=== PATIENT | male | born 2000 | race Hispanic/Latino ===

== ENCOUNTER 2019-09-25 09:48 | Inpatient (IN) | payer MEDICAID, SELFPAY ==
[2019-09-25] VITALS (11 sets, daily range): BP systolic 109–135; BP diastolic 63–83; PULSE 69–96; RESP 16–20; TEMP 35.9–36.9; O2SAT 98–100; BMI 20.9
--- NOTE | ~2019-09-25 | XR_ITS ---
EXAMINATION: XR chest 1V portable DATE: 09/26/2019 05:27 INDICATION: Left pneumothorax TECHNIQUE: frontal view of the chest was obtained. COMPARISON: Chest radiograph dated 09/25/2019 FINDINGS: Unchanged left chest tube. No pneumothorax. Lungs are clear with no airspace opacities, pulmonary bernardino ma or pleural effusion. The cardiomediastinal silhouette is normal. Persistent soft tissue gas at the lateral left chest wall extending to the base of the neck likely related to chest tube placement. IMPRESSION: 1. Unchanged left chest tube with no residual pneumothorax or other acute cardiopulmonary disease. Reviewed, dictated and finalized at location A. IMPRESSION: 1. Unchanged left chest tube with no residual pneumothorax or other acute cardi opulmonary disease.
--- NOTE | ~2019-09-25 | XR_ITS ---
EXAMINATION: XR chest 2V DATE: 09/25/2019 10:53 INDICATION: Chest pain when laying down TECHNIQUE: PA and lateral views of the chest were obtained. COMPARISON: None FINDINGS: Small to moderate left pneumothorax with separation of the pleural margins measuring 2.8 cm at the ap ex decreasing to 8 mm at the lateral midlung and 3 mm at the lateral mid to lower lung. No focal airs pace opacities, pulmonary edema, pleural effusion or right-sided pneumothorax. The cardiomediastinal silhouette is normal and remains midline. Visualized bones and soft tissues are unremarkable. IMPRESSION: 1. Small to moderate left pneumothorax without midline shift to suggest tension physiology. Dr. Courtney sheets discussed these findings with Dr. Jimenez at 11:10 AM. Reviewed, dictated and finalized at location A. IMPRESSION: 1. Small to moderate left pneumothorax without midline shift to suggest tension physiology. Dr. Plasencia discussed these findings with Dr. Jimenez at 11:10 AM.
--- NOTE | ~2019-09-25 | XR_ITS ---
EXAMINATION: XR chest 2V DATE: 09/27/2019 14:38 INDICATION: Left pneumothorax status post chest tube removal. TECHNIQUE: Frontal and lateral views of the chest were obtained. COMPARISON: Chest 2 views at 9:10 AM FINDINGS: The chest demonstrates clear lungs without pneumonia, pleural effusion, or pneumothorax. Th e heart size is normal. Again seen is gas in left chest wall and left neck. IMPRESSION: 1. No acute cardiopulmonary disease. Reviewed, dictated and finalized at location A.
--- NOTE | ~2019-09-25 | XR_ITS ---
EXAMINATION: XR chest 2V DATE: 09/27/2019 09:13 INDICATION: Left pneumothorax with left chest tube placed to waterseal. TECHNIQUE: PA and lateral views of the chest were obtained. COMPARISON: Chest radiograph dated 09/26/2019 FINDINGS: Unchanged left chest tube. No focal airspace opacities, pulmonary edema, pleural effusion or pneumoth orax. Cardiomediastinal silhouette is normal. Subcutaneous gas at the left chest wall base of the lef t neck likely related to chest tube placement. IMPRESSION: 1. Unchanged left chest tube with no recurrent pneumothorax or other evident lung disease. Reviewed, dictated and finalized at location A. IMPRESSION: 1. Unchanged left chest tube with no recurrent pneumothorax or other evident rosa ng disease.
--- NOTE | ~2019-09-25 | XR_ITS ---
EXAMINATION: XR chest-chest tube insert/pos DATE: 09/25/2019 13:11 INDICATION: Chest tube placement for left pneumothorax TECHNIQUE: frontal view of the chest was obtained. COMPARISON: Chest radiograph dated 09/25/2019 at 10:53 AM FINDINGS: Interval placement of a left chest tube which curves over the left upper lung zone with distal tip pr ojecting over the left hilum. No definitive residual pneumothorax. No focal airspace opacities, pulmo nary edema or pleural effusion. The cardiomediastinal silhouette is normal. Size bones are unremarkab le. Expected soft tissue gas related to chest tube placement extending along the lateral left chest w all and into the base of the left neck. IMPRESSION: 1. Resolution of prior left pneumothorax post chest tube placement. Reviewed, dictated and finalized at location A.
--- NOTE | 2019-09-25 10:30 | ECG_ITS ---
Measurements Intervals [place] Rate: 80 P: 33 AL: 142 QRS: 19 QRSD: 90 T: 62 QT: 345 QTc: 399 Interpretive Statements SINUS RHYTHM WITH SINUS ARRHYTHMIA NORMAL ECG Electronically Signed On 09-25-2019 20:41:44 CDT by Jamey Powell D.O.
[2019-09-25] MEDS: ASPIRIN 81 MG CHEWABLE TABLET 324 MG PO (10:43)
--- NOTE | 2019-09-25 11:05 | ED.GENADULT ---
HPI - General Adult General Chief complaint: Unspecified Stated complaint: chest hurts to lay down or take deep breath Time Seen by Provider: 09/25/19 10:43 Source: patient Mode of arrival: ambulatory Limitations: no limitations Related Data Home Medications Medication Instructions Recorded Confirmed No Home Medications 09/25/19 09/25/19 Allergies Allergy/AdvReac Type Severity Reaction Status Date / Time No Known Allergies Allergy Unverified 09/25/19 10:00 Review of Systems Review of Systems: Narrative: CONSTITUTIONAL: Denies fever, chills, or sweats. EYES: Denies visual changes, redness, or discharge. ENT: Denies rhinorrhea, congestion, sore throat, or otalgia. CARDIOVASCULAR: Denies chest pain, palpitations, or edema. RESPIRATORY: Denies cough or dyspnea. GASTROINTESTINAL: Denies abdominal pain, nausea, vomiting, or diarrhea. GENITOURINARY: Denies dysuria or hematuria. SKIN: Denies rash or itching. MUSCULOSKELETAL: Denies back pain, joint pain, or myalgia. NEUROLOGIC: Denies headache, numbness, or weakness. PSYCHIATRIC: Denies anxiety or depression. PMFSH Social History Social History Gender identity (if verbalized by the patient): Male Comments At the time of my signature I agree with nursing past medical history, surgical, social, and family history. There is no relevant family history pertinent to the presenting complaint. Exam Narrative: Exam Narrative: GENERAL: Well-appearing, well-nourished, and in no acute distress. HEAD: Normocephalic, atraumatic. EYES: PERRLA and EOMI. ENT: Nares clear, no rhinorrhea or epistaxis. Mucous membranes moist. NECK: Supple. No lymphadenopathy CHEST: Clear to auscultation. No respiratory distress. HEART: Regular rate and rhythm. No murmur heard. Normal peripheral pulses. ABDOMEN: Soft, nontender, nondistended, normal active bowel sounds. EXTREMITIES: Normal range of motion. No edema. SKIN: Warm, dry, no rash. NEURO: No focal deficits. Alert and oriented x3. Course Vital Signs Vital signs: Vital Signs Temperature 36.9 C 09/25/19 09:57 Pulse Rate 93 09/25/19 09:57 Respiratory Rate 09/25/19 09:57 Blood Pressure 125/75 09/25/19 09:57 Pulse Oximetry 98 09/25/19 09:57 Temperature 36.9 C 09/25/19 09:57 Pulse Rate 96 09/25/19 10:29 Respiratory Rate 09/25/19 09:57 Blood Pressure 125/75 09/25/19 09:57 Pulse Oximetry 98 09/25/19 09:57 Vital signs reviewed. Medical Decision Making Differential Diagnosis Differential Diagnosis: Differential diagnosis: STEMI/ACS, AAA, PE, spontaneous pneumothorax, cardiac tamponade, esophageal rupture, pneumonia, GERD, muscle-skeletal pain or trauma, endocarditis, cocaine-related ischemia, pericarditis, URI, bronchitis. Vital Signs Vital Signs: Vital Signs Temperature 36.9 C 09/25/19 09:57 Pulse Rate 93 09/25/19 09:57 Respiratory Rate 09/25/19 09:57 Blood Pressure 125/75 09/25/19 09:57 Pulse Oximetry 98 09/25/19 09:57 Temperature 36.9 C 09/25/19 09:57 Pulse Rate 96 09/25/19 10:29 Respiratory Rate 09/25/19 09:57 Blood Pressure 125/75 09/25/19 09:57 Pulse Oximetry 98 09/25/19 09:57 Critical Care Time Critical Care Time Critical Care Time: No Discharge Plan Discharge Prescriptions: No Action No Home Medications RF: 0
--- NOTE | 2019-09-25 11:36 | ED.GENADULT ---
HPI - General Adult General Chief complaint: Unspecified Stated complaint: chest hurts to lay down or take deep breath Time Seen by Provider: 09/25/19 10:43 History of Present Illness HPI narrative: Left sided chest pain since this morning. The pain is worse with taking a deep breath or laying flat. He has never had this type of pain before. No cough, congestion, fever. Pain is moderate. No medical problems. Related Data Home Medications Medication Instructions Recorded Confirmed No Home Medications 09/25/19 09/25/19 Allergies Allergy/AdvReac Type Severity Reaction Status Date / Time No Known Allergies Allergy Unverified 09/25/19 10:00 Review of Systems Review of Systems: All systems reviewed & are unremarkable except as noted in HPI and below PMFSH Past Medical History Medical History Healthy adult male Surgical History Surgical History No history of previous surgery Family History Family History Father No problems noted. Mother No problems noted. Social History Social History Smoking status: Never smoker Alcohol intake: never Substance use: current Substance use type: marijuana Other substance usage details: DAILY Last use: 09/24/2019 Gender identity (if verbalized by the patient): Male Spiritual care concerns: No Exam Const: General: healthy appearing, no acute distress and alert Orientation/consciousness: patient oriented x3 HENMT: Head: normal to inspection Neck: Neck: normal visual inspection and no lymphadenopathy Chest: Chest palpation & inspection: no tenderness Resp: Effort & Inspection: normal respiratory effort Auscultation: diminished lung sounds on the left Cardio: Jugular venous distension: no JVD Rate: regular rate Rhythm: regular rhythm Heart sounds: no murmurs GI: Inspection: non-distended GI Palp: Yes Soft to palpation and No Tenderness to palpation present (GI) Skin: General skin exam: normal color Neuro: General: patient oriented x3 and moves all extremities Speech: normal speech Extrem: General: no edema Psych: Appearance: well kempt Affect: normal affect Course Vital Signs Vital signs: Vital Signs Temperature 36.9 C 09/25/19 09:57 Pulse Rate 93 09/25/19 09:57 Respiratory Rate 20 09/25/19 09:57 Blood Pressure 125/75 09/25/19 09:57 Pulse Oximetry 98 09/25/19 09:57 Temperature 36.9 C 09/25/19 15:30 Pulse Rate 84 09/25/19 16:14 Respiratory Rate 16 09/25/19 16:14 Blood Pressure 126/71 09/25/19 15:30 Pulse Oximetry 100 09/25/19 16:14 Procedures Chest Tube Chest Tube 1: Chest Tube Date: 09/25/19 Chest Tube Time: 13:00 Chest Tube Location: left, mid axillary line and fourth interspace Tube Type: quik thal Size of Tube (cm): 16 Chest Tube Prep: Yes sterile drapes applied and other Anesthetic: lidocaine 1% and with epi Amount of anesthesia used (mL): 15 Incision Made With: #11 blade Procedure: seldinger technique Post Procedure: sutured to skin, sterile dressing applied and connected to Pluero Vac Tube Drainage: coughlin of air Post Procedure CXR?: Yes Post Procedure: post CXR reviewed, placement appropriate and pneumo resolved Patient Tolerated Procedure: Yes Medical Decision Making Vital Signs Vital Signs: Vital Signs Temperature 36.9 C 09/25/19 09:57 Pulse Rate 93 09/25/19 09:57 Respiratory Rate 09/25/19 09:57 Blood Pressure 125/75 09/25/19 09:57 Pulse Oximetry 98 09/25/19 09:57 Temperature 36.9 C 09/25/19 15:30 Pulse Rate 84 09/25/19 16:14 Respiratory Rate 16 09/25/19 16:14 Blood Pressure 126/71 09/25/19 15:30 Pulse Oximetry 100
[2019-09-25 11:48] LABS: Basophils Percent Auto 0.2 % (0.2-1.2); Eosinophils Absolute Auto 0.1 K/mm3 (0-0.3); Eosinophils Percent Auto 0.5 % (0-4.4); Hematocrit 48.2 % (42.0-52.0); Hemoglobin 16.4 g/dL (14.0-18.0); Immature Granulocyte Absolute 0.02 K/mm3 (0.00-0.031); Immature Granulocyte Percent A 0.2 % (0-0.5); Lymphocytes Absolute Auto 1.75 K/mm3 (0.9-3.2); Lymphocytes Percent Auto 15.1 % (18.3-44.2); Mean Corpuscular Hemoglobin 29.5 pg (26-34); Mean Corpuscular Volume 86.7 fl (80-100); Mean Platelet Volume 11.8 fl (7.4-10.4); Monocytes Absolute Auto 0.9 K/mm3 (0.1-0.6); Monocytes Percent Auto 7.5 % (2.6-8.5); Neutrophils Absolute Auto 8.8 K/mm3 (1.3-6.7); Neutrophils Percent Auto 76.5 % (45.5-73.1); Platelet Count Result 221 k/mm3 (150-375); Red Blood Count 5.56 M/mm3 (4.6-6.20); Red Cell Distribution Width 13.3 % (11.5-14.5); White Blood Count 11.6 K/mm3 (4.5-10.0)
[2019-09-25 11:58] LABS: INR 1.1; Partial Thromboplastin Time 32.5 SECONDS (22.3-36.8); Prothrombin Time 13.5 Seconds (11.1-14.7)
[2019-09-25 12:00] LABS: Blood Urea Nitrogen 10 mg/dL (9-20); Calcium 9.6 mg/dL (8.4-10.2); Carbon Dioxide 24 mmol/L (22-30); Chloride 104 mmol/L (98-107); Estimated CRCL calculation 126 ml/min; Estimated Glomerular Filt Rate > 60; Glucose 94 mg/dL (75-110); Potassium 3.8 mmol/L (3.4-5.0); Sodium 140 mmol/L (137-145)
[2019-09-25 12:12] LABS: Troponin I < 0.012 ng/mL (0.000-0.034)
--- NOTE | 2019-09-25 13:06 | PC.NURSE ---
1230 chest tube inserted by dr matthews pt verbalized understanding consent complete and on chart
[2019-09-25] MEDS: MORPHINE SULFATE 2 MG/ML INJ IV PUSH (14:53)
--- NOTE | 2019-09-25 15:30 | ADMGEN ---
This patient, Willy Reed, was admitted to Medical Room 346-01. Patient/family oriented to hospital policies and general routines including ID bracelet, bed and alarms, visiting hours, pain management, procedures, bathroom and other care routines, personal items, smoking policy, room service/diet, and visiting hours. Valuables list has been completed. Information on how to activate the Rapid Response Team has been discussed. Patient/Family are encouraged to report perceived risks to care and to ask questions if they do not understand what they are told or what they should do.
--- NOTE | 2019-09-25 16:46 | PM.IMHP ---
H&P: HPI History of Present Illness Chief complaint: spontaneous pneumothorax Narrative: Willy Reed is a 19 year old male who presented to the emergency department today with complaints of acute onset of chest pain and shortness of breath. He denies any history of cough, fever, upper respiratory infection, or trauma to his chest. He has never had any symptoms like this in the past. In the emergency department, a chest x-ray showed evidence of a left pneumothorax. Chest tube was subsequently placed by the ED physician. His shortness of breath has improved. He is still having some discomfort from the chest tube. Patient does not smoke cigarettes, but he does smoke marijuana daily. Review of Systems Review of Systems: All systems reviewed & are unremarkable except as noted in HPI and below Constitutional: Constitutional: Denies chills and Denies fever(s) Eyes: Eyes: Denies change in vision ENT: Denies hearing loss, Denies neck pain and Denies sore throat Cardiovascular: Cardiovascular: Denies chest pain and Denies dyspnea Respiratory: Respiratory: Reports as per HPI, Denies cough, Reports dyspnea and Denies wheezing Gastrointestinal: Gastrointestinal: Denies abdominal pain and Denies change in stool character Genitourinary: Genitourinary: Denies hematuria and Denies dysuria Musculoskeletal: Musculoskeletal: Denies arthralgias, Denies joint swelling and Denies neck pain Allergic/Immunologic: Allergic/Immunologic: Denies wheezing PMFSH Past Medical History Medical History (Updated 09/25/19 @ 16:51 by Stevie Chapin DO) Healthy adult male Surgical History Surgical History (Updated 09/25/19 @ 16:49 by Stevie Chapin DO) No history of previous surgery Family History Family History Father No problems noted. Mother No problems noted. Social History Social History Smoking status: Never smoker Alcohol intake: never Substance use: current Substance use type: marijuana Other substance usage details: DAILY Last use: 09/24/2019 Gender identity (if verbalized by the patient): Male Spiritual care concerns: No Meds Home Medications and Allergies Home Medications Medication Instructions Recorded Confirmed Type No Home Medications 09/25/19 09/25/19 History Allergies Allergy/AdvReac Type Severity Reaction Status Date / Time No Known Allergies Allergy Unverified 09/25/19 10:00 Vital Signs Vital Signs - 24 hr 09/25/19 09:57 09/25/19 10:29 09/25/19 11:30 Temperature 36.9 C Pulse Rate 93 96 90 Respiratory Rate 20 20 Blood Pressure 125/75 135/83 Pulse Oximetry 98 100 09/25/19 12:30 09/25/19 13:04 09/25/19 14:23 Temperature Pulse Rate 88 87 77 Respiratory Rate 20 20 20 Blood Pressure 125/80 131/78 111/74 Pulse Oximetry 100 99 98 09/25/19 15:05 09/25/19 15:30 09/25/19 16:14 Temperature 36.9 C Pulse Rate 72 79 84 Respiratory Rate 20 16 16 Blood Pressure 115/68 126/71 Pulse Oximetry 98 100 100 Exam Const: General: alert; No acute distress Orientation/consciousness: patient oriented x3 Limitations: no limitations HENMT: Head: normocephalic and atraumatic Ears: hearing grossly normal bilaterally General nose exam: Normal external nose present and Normal nares present Mouth: Yes Normal oral and palatal mucosa present and Yes moist mucous membranes Eyes: General: appearance normal, both eyes and all related structures Conjunctivae: conjunctivae normal Sclera: sclerae normal Pupils: Equal, round and reactive pupils present EOM: EOMs intact bilaterally Neck: Neck: normal visual inspection, full ROM, no lymphadenopathy, supple and no JVD Lymphatic: no lymphadenopathy noted Chest: Chest palpation & inspection: normal inspection of the chest Resp: Effort & Inspection: normal respiratory effort and able to speak in compl
[2019-09-25] MEDS: MORPHINE SULFATE 4 MG/ML INJ 2 MG IV PUSH ×3 (16:51→22:02)
[2019-09-26] MEDS: MORPHINE SULFATE 4 MG/ML INJ 2 MG IV PUSH ×2 (03:58→11:44)
[2019-09-26 06:00] VITALS: BP 116/76; PULSE 65; RESP 16; TEMP 36; O2SAT 100
[2019-09-26] MEDS: IBUPROFEN 600 MG TABLET PO (10:06)
--- NOTE | 2019-09-26 12:48 | PM.PNGS ---
Progress Note: A&P Assessment and Plan (1) Primary spontaneous pneumothorax: Code(s): J93.11 - Primary spontaneous pneumothorax Status: Acute Assessment and Plan: Chest x-ray this morning showed no evidence of a pneumothorax. Chest tube in place with no air leak. Place chest tube to water seal today. Repeat chest x-ray tomorrow morning. Will likely remove chest tube tomorrow if still no pneumothorax and no air leak. Encouraged IS use. (2) Marijuana use: Code(s): F12.90 - Cannabis use, unspecified, uncomplicated Status: Acute Assessment and Plan: Recommend cessation. Additional Plan Discussed the plan of care with Dr. Chapin today. Subjective Subjective Date/Time Seen: 09/26/19 12:48 Patient reports: no new complaints Interval history: Patient sitting in bed with only complaints of left-sided chest pain at the site of the chest tube. He states it is difficult to take a large breath because of pain, but no other complaints. Chest tube to -20cm wall suction on my exam. Review of Systems Review of Systems: All systems reviewed & are unremarkable except as noted in HPI and below Exam Const: General: comfortable, no acute distress and alert Orientation/consciousness: patient oriented x3 Limitations: no limitations Resp: Effort & Inspection: normal respiratory effort and able to speak in complete sentences Auscultation: clear to auscultation bilaterally Other: Left-sided chest tube in place with no air leak when taken off suction. Dressing clean/dry/intact. No crepitus. Neuro: General: moves all extremities and no focal motor deficits Psych: Mental Status: mental status grossly normal Affect: normal affect Insight: Good insight present (Psych) Judgement: Good judgement present (Psych) Objective Data Vital Signs Vital Signs: Vital Signs - 24 hr 09/25/19 13:04 09/25/19 14:23 09/25/19 15:05 Temperature Pulse Rate 87 77 72 Respiratory Rate 20 20 20 Blood Pressure 131/78 111/74 115/68 Pulse Oximetry 99 98 98 09/25/19 15:30 09/25/19 16:14 09/25/19 19:21 Temperature 98.5 F Pulse Rate 79 84 Respiratory Rate 16 16 Blood Pressure 126/71 Pulse Oximetry 100 100 98 09/25/19 22:00 09/26/19 06:00 Temperature 96.7 F L 96.8 F L Pulse Rate 69 65 Respiratory Rate 18 16 Blood Pressure 109/63 116/76 Pulse Oximetry 100 100 Intake/Output Intake/Output: Intake & Output 09/23/19 09/24/19 09/25/19 09/26/19 23:59 23:59 23:59 23:59 Intake Total 580 460 Output Total 350 Balance 580 110 Meds/Results Medications: Active Medications Generic Name Dose Route Start Last Admin Trade Name Freq PRN Reason Stop Dose Admin Hydrocodone Bitart/Acetaminophen 1 tab 09/25/19 16:42 09/26/19 03:57 Kathleen 5-325 Mg PO 1 tab Q4H PRN Administration Pain Rated 4-6 Ibuprofen 600 mg 09/25/19 16:42 09/26/19 10:06 Motrin PO 600 mg Q6H PRN Administration Pain Rated 1-3 Morphine Sulfate 2 mg 09/25/19 13:57 09/26/19 11:44 Morphine Sulfate Inj IV PUSH 2 mg Q2H PRN Administration Pain Rated 7-10 Radiology Results: ITS Impressions Chest X-Ray 09/26/19 07:46 IMPRESSION: 1. Unchanged left chest tube with no residual pneumothorax or other acute cardiopulmonary disease.
[2019-09-26 14:00] VITALS: BP 111/67; PULSE 52; RESP 18; TEMP 36; O2SAT 100
[2019-09-26 21:30] VITALS: BP 115/77; PULSE 60; RESP 18; TEMP 36.4; O2SAT 100
[2019-09-27 06:00] VITALS: BP 112/74; PULSE 62; RESP 16; TEMP 36.4; O2SAT 100
--- NOTE | 2019-09-27 11:39 | PM.PNGS ---
Progress Note: A&P Assessment and Plan (1) Primary spontaneous pneumothorax: Code(s): J93.11 - Primary spontaneous pneumothorax Status: Acute Assessment and Plan: Chest x-ray this morning on water seal showed no evidence of a pneumothorax. Chest tube in place with no air leak. Removed chest tube at the bedside. Will repeat chest x-ray in 3 hours after removal. If that chest x-ray shows no evidence of a pneumothorax and he is doing well, then the patient could be discharged later today. (2) Marijuana use: Code(s): F12.90 - Cannabis use, unspecified, uncomplicated Status: Acute Assessment and Plan: Discussed importance of avoiding marijuana use, specifically smoking due to the risk of recurrent pneumothorax in the future and risk it poses to his health. Patient verbalized understanding. Additional Plan Discussed the plan of care with Dr. Chapin today. Subjective Subjective Date/Time Seen: 09/27/19 11:39 Patient reports: no new complaints, feels better and pain is less Interval history: Patient reports feeling better today with less pain near the chest tube site. Denies any shortness of breath or difficulty breathing. No other complaints at this time. Review of Systems Review of Systems: All systems reviewed & are unremarkable except as noted in HPI and below Respiratory: Respiratory: Reports as per HPI Exam Const: General: comfortable and alert; No acute distress Orientation/consciousness: patient oriented x3 Resp: Effort & Inspection: normal respiratory effort and able to speak in complete sentences Auscultation: clear to auscultation bilaterally Other: Left-sided chest tube in place with no air leak on water seal. Dressing clean/dry/intact. No crepitus. Removed the left-sided chest tube and suture at the bedside today after my assessment. Applied an occlusive sterile dressing. Patient tolerated well. Cardio: Rate: regular rate Rhythm: regular rhythm Skin: General skin exam: normal color Neuro: General: moves all extremities and no focal motor deficits Extrem: General: normal to inspection Psych: Mental Status: mental status grossly normal Affect: normal affect Insight: Good insight present (Psych) Judgement: Good judgement present (Psych) Objective Data Vital Signs Vital Signs: Vital Signs - 24 hr 09/26/19 14:00 09/26/19 21:30 09/27/19 06:00 Temperature 96.8 F L 97.5 F L 97.6 F Pulse Rate 52 L 60 62 Respiratory Rate 18 18 16 Blood Pressure 111/67 115/77 112/74 Pulse Oximetry 100 100 100 Intake/Output Intake/Output: Intake & Output 09/24/19 09/25/19 09/26/19 09/27/19 23:59 23:59 23:59 23:59 Intake Total 580 940 780 Output Total 1000 900 Balance 580 -60 -120 Meds/Results Medications: Active Medications Generic Name Dose Route Start Last Admin Trade Name Freq PRN Reason Stop Dose Admin Hydrocodone Bitart/Acetaminophen 1 tab 09/25/19 16:42 09/27/19 02:44 [place] 5-325 Mg PO 1 tab Q4H PRN Administration Pain Rated 4-6 Ibuprofen 600 mg 09/25/19 16:42 09/26/19 10:06 Motrin PO 600 mg Q6H PRN Administration Pain Rated 1-3 Morphine Sulfate 2 mg 09/25/19 13:57 09/26/19 11:44 Morphine Sulfate Inj IV PUSH 2 mg Q2H PRN Administration Pain Rated 7-10 Radiology Results: ITS Impressions Chest X-Ray 09/27/19 09:15 IMPRESSION: 1. Unchanged left chest tube with no recurrent pneumothorax or other evident lung disease. Quality If No VTE Prophylaxis Answer both mechanical and pharmacologic: Reason no mechanical VTE proph: low risk/not indicated Reason no pharmacologic proph: low risk/not indicated
[2019-09-27 14:17] VITALS: BP 141/76; PULSE 70; RESP 14; TEMP 36.8; O2SAT 100
--- NOTE | 2019-09-27 14:50 | PM.DS ---
DS: Admitting Diagnosis Admitting Diagnosis Admitting Diagnosis: Primary spontaneous pneumothorax DS: Discharge Diagnosis Discharge Diagnosis (1) Primary spontaneous pneumothorax: Code(s): J93.11 - Primary spontaneous pneumothorax Status: Acute (2) Marijuana use: Code(s): F12.90 - Cannabis use, unspecified, uncomplicated Status: Acute DS: Summary Hospital Course Reason for hospitalization: Left pneumothorax. Hospital Course: This is a 19-year-old man who presented to the emergency department with complaints of chest pain and shortness of breath on 09/25/2019. Chest x-ray in the emergency department showed evidence of a moderate-sized left pneumothorax. He had never experienced problems like this in the past. He does smoke marijuana daily. He denies any history of asthma. A chest tube was inserted by the ED physician and postprocedure x-ray demonstrated full re-expansion of the lung. He was then admitted to the hospital for further management of the chest tube. The chest tube was initially placed to -20 cm H2O. His pain was controlled with oral and IV pain medications. His breathing appeared stable and he showed no evidence of hypoxia. On 09/26/2019 his chest x-ray showed no evidence of pneumothorax, therefore the chest tube was placed to water seal. There is no evidence of air leak once the chest tube was placed to water seal. The patient continued to breathe well without any respiratory distress. On 09/27/2019 a repeat chest x-ray showed no evidence of pneumothorax while on water seal, therefore the chest tube was removed. The patient was kept in the hospital for several more hours after chest tube removal to be carefully observed. One more x-ray was done in the afternoon on 09/26 and this demonstrated no further signs of pneumothorax since the chest tube was removed. The patient was discharged on 09/26. Time spent discussing smoking cessation with patient: 3 to 10 minutes Status at Discharge Functional status at discharge: independent ambulation Overall status at discharge: patient is progressing back to baseline Time Spent with Patient Time attestation: Total time spent providing and/or coordinating discharge services: Time spent: Less than 30 minutes Exam Const: General: no acute distress Neck: Neck: supple and no JVD Resp: Effort & Inspection: normal respiratory effort Auscultation: clear to auscultation bilaterally Cardio: Rate: regular rate Rhythm: regular rhythm DS: Data Imaging Radiologist's impression: ITS Impressions Chest X-Ray 09/25/19 11:07 IMPRESSION: 1. Small to moderate left pneumothorax without midline shift to suggest tension physiology. Dr. Plasencia discussed these findings with Dr. Jimenez at 11:10 AM. Chest X-Ray 09/25/19 13:12 IMPRESSION: 1. Resolution of prior left pneumothorax post chest tube placement. Chest X-Ray 09/26/19 07:46 IMPRESSION: 1. Unchanged left chest tube with no residual pneumothorax or other acute cardiopulmonary disease. Chest X-Ray 09/27/19 09:15 IMPRESSION: 1. Unchanged left chest tube with no recurrent pneumothorax or other evident lung disease. Chest X-Ray 09/27/19 14:40 IMPRESSION: 1. No acute cardiopulmonary disease. Discharge Plan Discharge Attending physician on discharge: Stevie Chapin Discharging Clinician: Stevie Chapin Patient Disposition: Home, Self-Care Activity: may shower Diet: regular Wound Care Instructions: follow printed instructions Discharge Instructions: May remove bandage on morning. Reapply bandage as needed for any wound openings. Avoid strenuous activity for 1 week. Return to the emergency department for any recurrent symptoms. Patient Instructions: Antibiotic Form Stand Alone Forms: General Discharge Information Follow-up/Referrals: Jacqueline Sam MD [Primary Care Provider] - Follow Up with Primary Dr Jimenez
== END 2019-09-27 15:00 | disposition home or self-care (01) | DRG 143 ==
LOC: ANHED 11:32 → ANH3MED 14:32
PROVIDERS: Admitting Provider Surgery; Emergency Provider Emergency Medicine; PCP Family Medicine; Visit Provider Surgery
DX: J93.11 Primary spontaneous pneumothorax (principal); F12.90 Cannabis use, unspecified, uncomplicated
CPT/HCPCS: 32551; 36415; 71045; 71046; 80048; 84484; 85025; 85610; 85730; 93005; 96374; 96375; 99291; A9270; C1729; J2270; J3010

== ENCOUNTER 2024-09-19 16:24 | Emergency (ER) | payer SELFPAY ==
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
[2024-09-19 16:28] VITALS: BP 118/72; PULSE 115; RESP 18; TEMP 36.6; O2SAT 100
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
[2024-09-19 19:41] VITALS: BP 112/85; PULSE 70; RESP 16; TEMP 36.7; O2SAT 97
== END 2024-09-19 19:42 | disposition home or self-care (01) ==
LOC: ANHED 18:20
PROVIDERS: Emergency Provider Emergency Medicine
DX: S62.330A Displaced fracture of neck of second metacarpal bone, right hand, initial encounter for closed fracture (principal); W51.XXXA Accidental striking against or bumped into by another person, initial encounter
CPT/HCPCS: 29125; 73130; 99284